=== PATIENT | female | born 1990 | race Caucasian/White ===

== ENCOUNTER 2016-12-12 15:28 | Outpatient (CLI) | payer OTHER | END 2016-12-12 15:30 | LOC: LAB 15:28 | PROVIDERS: ATTEND Family Medicine | DX: Z11.3 Encounter for screening for infections with a predominantly sexual mode of transmission (principal); Z12.4 Encounter for screening for malignant neoplasm of cervix | CPT/HCPCS: 36415; 86703; 86803; 87491; 87591; 88148; G0143 ==